=== PATIENT | female | born 1945 | race Caucasian/White ===

== ENCOUNTER 2016-08-17 05:10 | Inpatient (IN) | payer MEDICARE, BC ==
[2016-08-16 16:35] LABS: BASOPHILS 0.3 % (0.0-2.0); EOSINOPHILS 0.9 % (0-7); HEMATOCRIT 38.7 % (36.0-48.0); HEMOGLOBIN 12.9 g/dL (12-16); IMMATURE GRANULOCYTES 0.2 % (0-5); LYMPHOCYTES 28.8 % (15-50); MCH 31.6 pg (26.0-34.0); MCHC 33.3 g/dL (31.0-37.0); MCV 94.9 fL (80.0-100.0); MEAN PLATELET VOLUME 8.3 fL (7.4-10.4); MONOCYTES 8.7 % (2-11); NEUTROPHILS 61.1 % (40-80); PLATELET COUNT 318 10x3/uL (130-400); RBC 4.08 10x6/uL (4.00-5.40); WBC 10.2 10x3/uL (4.8-10.8)
[2016-08-16 16:53] LABS: APPEARANCE CLEAR (CLEAR); BILIRUBIN NEGATIVE (NEGATIVE); COLOR YELLOW (YELLOW); GLUCOSE NEGATIVE (NEGATIVE); KETONE NEGATIVE (NEGATIVE); LEUKOCYTE ESTERASE 1+ (NEGATIVE); NITRITE NEGATIVE (NEGATIVE); PROTEIN NEGATIVE (NEGATIVE); UROBILINOGEN NORMAL (NORMAL)
[2016-08-16 16:54] LABS: BACTERIA FEW /hpf (NONE SEEN); EPITHELIAL CELLS OCC /hpf (0-5); RED CELLS - URINE 0-5 /hpf (0-5); WHITE CELLS - URINE 0-5 /hpf (0-5)
[2016-08-16 17:26] LABS: ANION GAP 12.5 mmol/L (8-16); CALCIUM 8.9 mg/dL (8.5-10.1); CARBON DIOXIDE 28.3 mmol/L (21.0-32.0); POTASSIUM - SERUM 3.8 mmol/L (3.5-5.1)
[2016-08-17] VITALS (12 sets, daily range): BP systolic 106–132; BP diastolic 60–70; Ht 157.5 cm; Wt 59.1 kg
[~2016-08-17] VITALS: Ht 157.5 cm; Wt 59.1 kg
[~2016-08-17 05:10] MED LIST: CARTIA XT240 MG PO; CHILDREN'S ASPI81 MG PO; DEXILANT30 MG PO; HYZAAR 100-12.51 TAB PO; IBUPROFEN800 MG PO; LIPITOR20 MG PO; REQUIP0.25 MG PO
--- NOTE | 2016-08-17 09:46 | HP ---
PATIENT: MIKEY IRIZARRY MEDICAL RECORD: [id number] ACCOUNT: [id number] LOCATION:[facility] [place]- : 47 ADMISSION DATE: 08/17/16 HISTORY AND PHYSICAL EXAMINATION CHIEF COMPLAINT: Neck pain secondary to C5-C6 degenerative disc disease. HISTORY OF PRESENT ILLNESS: This is a pleasant small framed white female seen in our clinic on referral from Dr. Saleh secondary to neck pain. She has been symptomatic despite conservative treatment. She has had 1 cervical injection, which did not bring any lasting relief. She is an avid golfer. Her pain worsened after playing pickleball. It radiates into her left shoulder, worse than right. PAST MEDICAL HISTORY: Significant for a stent placed in 2007 with no subsequent symptoms and high blood pressure. SOCIAL HISTORY: She is , but recently engaged. PAST SURGICAL HISTORY: Stent placement, appendix, ____. FAMILY DOCTOR: Dr. Saleh. ALLERGIES: None. CURRENT MEDICATIONS: Ibuprofen, losartan/HCTZ, ____, atorvastatin, and Robinul. REVIEW OF SYSTEMS: She denies any recent chest pain, shortness of breath or weight changes. PHYSICAL EXAMINATION: GENERAL: This is an alert, oriented female. Height 5 feet and 2 inches. Weight 134. HEENT: Normocephalic. Pupils are equal and reactive to light. CHEST: Clear bilaterally to auscultation. HEART: S1 and S2. ABDOMEN: Soft, bowel sounds present. EXTREMITIES: She has bilateral equal footwear sales associate. She has pain with range of motion of her neck. IMPRESSION: C5-C6 degenerative disc disease, left greater than right. PLAN: C5-C6 ACDF with Alphatec. The risks and benefits of surgery have been explained to her in detail. Risks include bleeding, failure to relieve symptoms, problems with anesthesia and . Time was allowed for questions, questions were answered. The patient wishes to proceed with surgery. Her MRI was done at [facility] and she is bringing the disc with her. TRANSINT:[id number] Voice Confirmation ID: [id number] DOCUMENT ID: [id number] Dictated By: EMERY BELTRAN I have interviewed/examined the above patient and agree with these documented findings. HISTORY AND PHYSICAL [id number] MIKEY IRIZARRY KAPIL,CADY Conway MD at 0946 at 1339 CC: [id number] DICTATION DATE: 08/16/16 1518 GENERAL TECHNICIAN: 08/16/16 1549 ADM IN [facility] [address] [place] [address]
--- NOTE | 2016-08-17 10:03 | NUR ---
NO DIFFICULTY SWALLOWING TRACHEA MIDLINE NO TINGLING OR NUMBNESS EQUAL STRENGHTS IN ALL 4 EXTREMETIES
--- NOTE | 2016-08-17 11:00 | NUR ---
TO ROOM 2232 FROM PACU VIA BED.VSS.SOFT CERVICAL COLLAR IN PLACE AND CLEAN AND DRY.ELEONORA DRAIN INPLACE WITH MINIMAL DRAINAGE IN TUBE,RED IN COLOR.ORIENTATION TO ROOM WITH FAMILY.CALL LIGHT IN REACH.
--- NOTE | 2016-08-17 13:20 | NUR ---
Patient Name: MIKEY IRIZARRY Admission Status: Elective Accout number: [id number] Admission Date: 08-17-2016 : 1945 Admission Diagnosis: Attending: KIESHA Current LOS: 1 Anticipated DC Date: 08-19-2016 Planned Disposition: Home or Self Care Primary Insurance: MEDICARE A & B Discharge Planning Comments: CM MET WITH PATIENT AND SPOUSE (DYLON) REGARDING D/C NEEDS AND PLANS. PATIENTS SPOUSE WILL DRIVE HER HOME AT DISCHARGE. PATIENT IS INDEPENDENT WITH HER CARE AND HAS NO DME AT HOME. PATIENT HAS 2 STEPS W/O RAILS TO ENTER HOME AND NO STAIRS INSIDE. PATIENTS PCP IS DR. POST AND PHARMACY IS [facility]. PATIENT HAS NEVER HAD HOME HEALTH BEFORE. CM WILL CONTINUE TO FOLLOW PATIENT WITH D/C NEEDS AND PLANS. PCP DR. SEJAL SHERMAN AT [facility] [phone] DYLON (SPOUSE) [phone] Microelectronics Technician: Marie Dumont Is the patient Alert and Oriented? Yes 0 * How many steps to enter\exit or inside your home? 2 W/O RAIL 0 * PCP DR. POST 0 * Pharmacy [facility] 0 * Preadmission Environment Home with Family 0 * ADLs Independent 0 * Equipment None 0 * List name and contact numbers for known caregivers / representatives who currently or will assist patient after discharge: DYLON (SPOUSE) [phone] 0 * Community resources currently utilized None 0 * Additional services required to return to the preadmission environment? Yes 0 * Can the patient safely return to the preadmission environment? Yes 0 * Has this patient been hospitalized within the prior 30 days at any hospital? No 0 Grand Total: 0
--- NOTE | 2016-08-17 14:09 | NUR ---
MEDS ORDERED.DENIES PAIN.DSG REMAINS CDI.ELEONORA REMAINS UNCHANGED.CALL LIGHT IN REACH
--- NOTE | 2016-08-17 15:01 | NUR ---
STILL DENIES PAIN.VSS
--- NOTE | 2016-08-17 15:28 | NUR ---
CALL TO EMERY PADILLA.. DRAIN OUT.
--- NOTE | 2016-08-17 19:27 | NUR ---
REMAINS WITHOUT NEEDS,WITHOUT DISTRESS.CONT PLAN OF CARE
--- NOTE | 2016-08-17 22:07 | NUR ---
RESTING IN BED WATCHING TV. ALERT ORIENTED CONVERSANT. SOFT CERVICAL COLLAR ON. DENIES NEEDS. NO ACUTE DISTRESS NOTED
[2016-08-18] VITALS: BP 127/55
--- NOTE | 2016-08-18 00:10 | NUR ---
RESTING WITH EYES CLOSED, CERVICAL COLLAR IN PLACE, DSG CDI, NO DISTRESS NOTED, CL IN REACH
[2016-08-18 04:00] VITALS: BP 140/68
[2016-08-18] MEDS ORDERED: ROBAXIN500 MG PO (07:11)
[2016-08-18] MEDS ORDERED: HYDROCODON-ACE1 EAC7 PO (07:12)
[2016-08-18 08:04] VITALS: BP 135/63
--- NOTE | 2016-08-18 11:08 | NUR ---
DISCHARGE INSTRUCTIONS COMPLETED WITH PATIENT AND PATIENT'S . BOTH VERBALIZED UNDERSTANDING AND DENIES QUESTIONS. D/C IV WITH CATH INTACT.
--- NOTE | 2016-08-22 13:41 | OP ---
PATIENT NAME: CHELSEA WELCH MEDICAL RECORD: [id number] :47 LOCATION:[facility] ADMISSION DATE:08/17/16 SURGEON: CADY DICK MD DATE OF OPERATION: 08/17/2016 PREOPERATIVE DIAGNOSIS: Left C6 radiculopathy. POSTOPERATIVE DIAGNOSIS: Left C6 radiculopathy. PROCEDURE PERFORMED: 1. ____ C5-6 discectomy and bilateral foraminotomies. 2. Anterior interbody arthrodesis with inplate preparation. 3. Application of intervertebral biomechanical device at C5-6. 4. Anterior plate fixation with bilateral screws at C5 and C6 5. Use of intraoperative microscope with microdissection technique. IMPLANTS: 1. Alphatec Trestle Luxe plate 12 mm length. 2. A 14-mm variable angled screws at C5 bilaterally. 3. A 12-mm rescue screws at C6 bilaterally. 4. A 7-mm intervertebral Alphatec cage packed with DBX allograft. COMPLICATIONS: None Apparent. ESTIMATED BLOOD LOSS: 25 mL. NEURO MONITORING: No changes in SSEPs throughout. HISTORY OF PRESENT ILLNESS: Ms. Chelsea Welch is a pleasant 71-year-old female who presented as an outpatient with intractable left upper extremity pain consistent with a C6 distribution. MRI of the cervical spine was consistent with left C5-6 foraminal stenosis. I had an extensive discussion with her regarding continued conservative therapy versus operative intervention and decompression. She chose to undergo operative decompression fixation. We discussed the surgery in detail preoperatively including risks of damage to adjacent structures like the trachea, esophagus, temporarily swallowing dysfunction, vocal cord paralysis, malposition of hardware requiring further surgery, and lack of improvement and a preoperative pain. She understands the risks of surgery and agreed to go forward. DESCRIPTION OF THE PROCEDURE: Ms. Chelsea Welch was identified by the anesthesia team and transferred to the operative theater. She was gently transferred over the supine position on the operative table. General endotracheal anesthesia commenced and all appropriate lines and tubes were placed. Using lateral fluoroscopy, the incision was marked. The area was prepped and draped in usual sterile fashion. Local anesthetic was infiltrated in the dermal and subdermal space. Timeout was performed. Prior to the initiation of the procedure and agreed to by those present. The patient did received IV antibiotics and IV dexamethasone (10mg) prior to the start of the case. A #10 blade was used to make a skin incision down to the underlying subcutaneous fat. Bovie electrocautery was used to transect the platysma muscle. The Metzenbaum scissors were used to undermined the platysma rostrally and caudally. The plane between the carotid bundle laterally, and the trachea and esophagus medially was identified and developed and anterior cervical spine was identified. The prevertebral fascia was transected and the C5-6 disc space OPERATIVE REPORT [id number] EDIECHELSEA GILL was marked with a snap and confirmed to be the appropriate level on the lateral fluoroscopy. Low power Bovie electrocautery was used to joceline the disc space as well as to cleaned off the adjacent anterior aspect of the C5 and C6 vertebral body, as well as to undermined and dissect away the longus colli laterally. The Trimline retractor was then introduced and seated deep to the longus colli and gently retracted. A [place] pins were placed in the bodies of C5 and C6. Square cut in the C5-6 disc space was made with a 15 blade. At this point, the microscope was brought into the field and used throughout the decompression and the intervertebral cage placement. Again, using the microscope and gentle distraction with the [place] distractor pins, the C5-6 discectomy was carried out. The PLL was taken down and bilateral foraminotomies were performed. The decompression was complete when the nerve hook confirmed satisfactory decompression the bilateral foramina. Small amount of surgery FloSeal hemostatic matrix was used to control a small amount of epidural hemorrhage. This was irrigated free and no significant hemorrhage was appreciated. Ultimately, a 7-mm intervertebral trial was placed and found to be satisfactory on fluoroscopy. A 7 mm intervertebral cage was packed with DBX putty and inserted under lateral fluoroscopy to the appropriate depth. A 12-mm Alphatec plate was then laid into place and sequentially starting with a C5 vertebral body. The screws were predrilled and 14-mm variable angle screws were placed in the C5 vertebral bodies bilaterally. Using the hand held battery operated drill, the Profiler holes for the C6 screws were developed and a 14-mm fixed angled screws were then placed bilaterally. Initially, the screws were not set down to adequate depth to allow for the locking mechanism. Therefore, 12-mm rescue screws were exchanged and seated down. All components and the locking screws were confirmed to be in place with final locking visually obvious. Please note that when the [place] pins were removed prior to the plate fixation after the application of intervertebral cage. The [place] pin sites were addressed regarding hemostasis with a Surgiflo, hemostatic matrix. A copious amount of irrigation was used and Trimline retractors were carefully removed and no significant hemorrhage occurred. At this point, a 3D acquisition scan was performed with a 3/4 drapes covering the operative field. This confirmed a satisfactory hardware placement. The 3/4 drapes were taken down. The gloves were changed and final irrigation was performed. The platysma was reapproximated with interrupted 3-0 Vicryl sutures. Prior to this, a 10-Ivorian round drain was laid into place over the hardware in supraplatysmal fashion inferior and laterally away from the incision. Again, the platysma was closed with 3-0 Vicryl sutures in an interrupted fashion. The skin was closed with a running subcuticular 4-0 Monocryl. Dermabond dressing was placed. The drain was sutured into place and the patient was returned to the anesthesia team for reversal extubation. All sponge and needle counts were correct times 2 at the end of the case. No changes in SSEP monitoring was observed and the patient seemed to tolerate the procedure well. I updated the patient's fiancee immediately postoperatively in the waiting room and all of his questions were answered. TRANSINT:[id number] Voice Confirmation ID: [id number] DOCUMENT ID: [id number] OPERATIVE REPORT [id number] CHELSEA WELCH,CADY Conway MD at 1341 CC: [id number] DICTATION DATE: 08/17/16 1001 AED TRAINER: 08/17/16 1144 DIS IN 08/18/16 [facility] [address] [place] [address]
== END 2016-08-18 11:09 | disposition home or self-care (01) | DRG 473 ==
LOC: D.MS 05:10 → D.SDCHOLD 05:10 → D.MS 10:51 → D.SDCHOLD 12:00 → D.MS 08-18 11:09 → D.SDCHOLD 08-18 12:00
PROVIDERS: ADMIT Neurological Surgery
PROC: 0RG10A0 Fusion of Cervical Vertebral Joint with Interbody Fusion Device, Anterior Approach, Anterior Column, Open Approach (ICD-10-PCS; principal; 2016-08-17 07:30)
PROC: 0RB30ZZ Excision of Cervical Vertebral Disc, Open Approach (ICD-10-PCS; 2016-08-17 07:30)
DX: M50.122 Cervical disc disorder at C5-C6 level with radiculopathy (principal); I10 Essential (primary) hypertension

== ENCOUNTER → 2016-09-02 09:12 | Outpatient (CLI) | payer MEDICARE, BC ==
[2016-08-17 11:03] VITALS: BMI 23.8
[~2016-09-02 09:12] MED LIST changes: +HYDROCODON-ACE1 EAC7 PO; +ROBAXIN500 MG PO
== END | disposition home or self-care (01) ==
LOC: D.RAD 09:00
DX: M43.22 Fusion of spine, cervical region (principal)

== ENCOUNTER → 2017-03-21 09:02 | Outpatient (CLI) | payer MEDICARE, BC ==
[2016-08-17 11:03] VITALS: BMI 23.8
== END | disposition home or self-care (01) ==
LOC: D.RAD 09:00
DX: R07.89 Other chest pain (principal)

== ENCOUNTER → 2019-04-11 08:06 | Outpatient (CLI) | payer MEDICARE ==
[2016-08-17 11:03] VITALS: BMI 23.8
[~2019-04-11 08:06] MED LIST changes: +ALENDRONAT70 MG/75 M PO; +BAYER CHEWABLE81 MG PO; +EFFIENT10 MG PO
--- NOTE | 2019-04-17 02:11 | ST ---
PATIENT:MIKEY IRIZARRY MEDICAL RECORD: [id number] SEX: F LOCATION:[facility] ORDER #: ADMISSION DATE: 04/11/19 AGE OF PATIENT: 74 REFERRING PHYSICIAN: INTERPRETING PHYSICIAN: ZACHERY NICOLAS MD DATE OF SERVICE: 04/11/2019 PROCEDURE: Nuclear stress testing. INDICATION: Angina and coronary artery disease, shortness of breath, hypertension, hyperlipidemia. TECHNIQUE: She was exercised on standard Sabino protocol for 5 minutes, terminated due to shortness of breath, achieving 85% max target heart rate response with 33 mCi sestamibi injected at peak stress, 11 mCi used previously for rest images. FINDINGS: Gated SPECT reveals preserved ejection fraction at 80% with good wall motion and thickening and brightening throughout all segments. SPECT imaging Cardiolite was used as myocardial fusion agent. There is homogeneous uptake throughout all segments at rest and stress with no evidence of inducible ischemia or previous infarction. OVERALL IMPRESSION: 1. This is a normal nuclear stress test with no evidence of inducible ischemia or previous infarction. 2. Gated SPECT reveals a preserved ejection fraction at 80%. In this patient with ongoing symptomatology, the current scan does not suggest the presence of hemodynamically significant coronary artery disease. Evaluate noncardiac etiology of chest pain. TRANSINT:[id number] Voice Confirmation ID: [id number] DOCUMENT ID: [id number] ZACHERY NICOLAS MD at 0211 CC: MATEO POST MD [id number] DICTATION DATE: 04/12/19 1043 TURRET PRESS OPERATOR: 04/13/19 0014 DEP CLI 04/11/19 [place] [id number]
== END | disposition home or self-care (01) ==
LOC: D.HCCARDIO 08:06
PROVIDERS: ATTEND Internal Medicine Interventional Cardiology
DX: I25.119 Atherosclerotic heart disease of native coronary artery with unspecified angina pectoris (principal)

== ENCOUNTER 2019-05-21 08:10 | Outpatient (CLI) | payer MEDICARE ==
[~2019-05-21] VITALS: Ht 157.5 cm; Wt 59.1 kg
--- NOTE | ~2019-05-21 | HEMODYNAMI ---
PATIENT:MIKEY IRIZARRY MEDICAL RECORD: [id number] : 47 LOCATION:[facility] ADMISSION DATE: 05/21/19 Generatedon:05/21/201910:38 Patient name: MIKEY IRIZARRY Patient #: [id number] SSN: [id number] : 1945 Date of study: 05/21/2019 Page: Of Hemodynamic Procedure Report Patient Data Patient Demographics Procedure consent was obtained First Name: MIKEY Gender: Female Last Name: EDIE : 1945 Middle Initial: JAIRO Age: 74 year(s) Patient #: [id number] Race: SSN: [id number] Additional ID: [id number] Contact details [address]: [address] [place] [address] State: [place] City: [place] Zip code: [address] Past Medical History Performed procedures and imaging results Date Procedure Procedure Results Comments Stress testing with Negative SPECT MPI History of disease Date Diagnosis Comments CAD Allergies Allergen Reaction Date Comments Reported Other allergy 05/21/2019 clopidogrel bisulfate (from plavix) Admission Admission Data Admission Date: 05/21/2019 Admission Time: 8:10 Arrival Date: 05/21/2019 Arrival Time: 9:45 Admit Source: Other Insurance Payor: Medicare [facility] #: [id number] Height (in.): 61.81 BSA: 1.59 (m2) Height (cm.): 157 BMI: 23.94 (kg/m2) Weight (lbs.): 130.07 Weight (kg.): 59 Lab Results Lab Result Date: 05/21/2019 Lab Result Time: 0:00 Biochemistry Name Units Result Min Max BUN mg/dl 23 --(----)-* 7 18 Creatinine mg/dl 0.8 --(-*--)-- 0.6 1.3 eGFR ml/min 73.55830 *-(----)-- 90 120 NONAFRICAN CBC Name Units Result Min Max Hemoglobin g/dl 14.4 --(*---)-- 13.5 17.5 Procedure Procedure Types Cath Procedure Diagnostic Procedure [facility] w/Coronaries FFR/IVUS FFR Initial Sedation Charges Moderate Sedation up to 15 minutes PCI Procedure Coronary Stent Coronary Stent Initial Procedure Description Procedure Date Procedure Date: 05/21/2019 Procedure Start Time: 10:15 Procedure End Time: 10:36 Procedure Staff Name Function Xavier Wilkinson MD Performing Physician Rosalind Ramsey RT Monitor Jeanne Bean RT Monitor Jamal Wong RN Nurse Radha Hastings RT Scrub Indication Angina Procedure Data Cath Procedure Fluoroscopy Diagnostic fluoroscopy Total fluoroscopy Time: 2.9 time: 2.9 min min Diagnostic fluoroscopy Total fluoroscopy dose: 275 dose: 275 mGy mGy Contrast Material Contrast Material Type Amount (ml) Isovue 300 82 Entry Location Entry Primary Successful Side Size Upsize Upsize Entry Closure Marroquin ccessful Closure Location (Fr) 1 (Fr) 2 (Fr) Remarks Device Remarks Radial Right 6 Fr Mechanical artery Short Compression Estimated blood loss: 10 ml Diagnostic catheters Device Type Used For End Catheter Placement DIAGNOSTIC Lawn 110cm 5 Procedure Fr catheter ([id number]) Procedure Complications No complications Procedure Medications Medication Administration Route Dosage 0.9% NaCl I.V. 100 ml/hr Oxygen etCO2 Nasal cannula 2 l/min Heparin Flush Bag added to field 1 bags (1000units/500ml NS) Lidocaine 2% added to field 20 Radial Cocktail added to field 1 syringe (Verapamil 2mg/Nitro 400mcg/Heparin 1500units) Benadryl I.V. 50 mg Versed I.V. 2 mg Fentanyl I.V. 100 mcg Radial Cocktail I.A. 1 syringe (Verapamil 2mg/Nitro 400mcg/Heparin 1500units) Versed I.V. 1 mg Heparin Bolus I.V. 4000 units Integrilin (Bolus I.V. 5 ml 2mg/ml) Integrilin (Bolus wasted 5 ml 2mg/ml) Effient P.O. 60 mg Hemodynamics Rest BSA: 1.59 (m2) HGB: 14.4 (g/dl) O2 Consumption: Estimated: 153.14 (ml/min) O2 Co nsumption indexed: Estimated:96.31 (ml/min/m) Heart Rate: 83 (bpm) Snapshots Pre Cath Intra NCS Post Cath Vital Signs Time Heart Resp SPO2 etCO2 NIBP (mmHg) Rhythm Pain Sedation Rate (ipm) (%) (mmHg) Status Level (bpm) 9:49:25 80 24 96 0 146/69(118) NSR 0 (11) 10(A) , No pain 9:53:43 60 10 99 28.6 153/72(119) NSR 0 (11) 10(A) , No pain 9:58:05 62 11 100 30.9 150/70(116) NSR 0 (11) 10(A) , No pain 10:02:23 60 11 100 30.1 126/61(105) NSR 0 (11) 10(A) , No pain 10:07:37 58 11 100 30.9 128/64(100) NSR 0 (11) 10(A) , No pain 10:11:51 59 12 100 30.8 134/66(110) NSR 0 (11) 10(A) , No pain 10:16:48 56 18 99 30.9 111/58(87) NSR 0 (11) 10(A) , No pain 10:20:58 69 18 95 28.6 111/61(88) NSR 0 (11) 9(A) , No pain 10:25:08 63 19 97 27.9 112/60(92) NSR 0 (11) 9(A) , No pain 10:29:17 70 11 98 33.1 117/60(100) NSR 0 (11) 10(A) , No pain 10:33:30 62 10 100 30.1 123/60(105) NSR 0 (11) 10(A) , No pain Medications Time Medication Route Dose Verified Delivered Reason Not es Effectiveness by by 9:53:30 0.9% NaCl I.V. 100 Jamal Jamal Per physician ml/hr Marvin Wong RN RN 9:53:41 Oxygen etCO2 2 l/min Jamal Jamal for low 02 sats Nasal Deenaigan Marvin cannula RN RN 9:53:54 Heparin Flush added 1 bags Jamal Jamal used for Bag to Marvin Wong procedure (1000units/500ml field LUÍS RN NS) 9:54:06 Lidocaine 2% added 20ml Jamal Jamal for local to vial Lorigan Deenaigan anesthetic field STALEY RN 9:54:17 Radial Cocktail added 1 Jamal Jamal used for (Verapamil to syringe Lorigan Lorigan procedure 2mg/Nitro field RN RN 400mcg/Heparin 1500units) 9:54:30 Benadryl I.V. 50 mg Jamal Jamal Per physician Marvin Wong RN RN 10:12:26 Versed I.V. 2 mg Jamal Jamal for sedation Marvin Wong RN RN 10:12:37 Fentanyl I.V. 100 mcg Jamal Jamal for sedation Marvin Wong RN RN 10:17:29 Radial Cocktail I.A. 1 Jamal Xavier for (Verapamil syringe Marvin Wlikinson MD vasodilation 2mg/Nitro RN 400mcg/Heparin 1500units) 10:17:42 Versed I.V. 1 mg Jamal Jamal for sedation Marvin Wong RN RN 10:26:29 Heparin Bolus I.V. 4000 Jamal Jamal for units Marvin Wong anticoagulation RN RN 10:26:44 Integrilin I.V. 5 ml Jamal Jamal for (Bolus 2mg/ml) Marvin Wong antiplatelet RN RN therapy 10:26:51 Integrilin wasted 5 ml Jamal Jamal to sharp's (Bolus 2mg/ml) Marvin Wong RN RN 10:31:45 Effient P.O. 60 mg Jamal Jamal for Marvin Wong antiplatelet RN RN therapy Procedure Log Time Note 9:38:54 Informed consent obtained and on chart 9:43:09 ACC Patient presents with Stable Angina CCS Anginal Class 1--Ordinary physical activity does not cause angina, angina occurs with strenuos, rapid, or prolonged activity.. 9:43:17 Procedure Status Elective Heart Cath (OP). 9:43:25 Jamal Wong RN sent for patient. Start room use. 9:43:28 Time tracking: Regular hours (M-F 7:00 - 5:00) 9:43:37 Plan of Care:Hemodynamics will remain stable., Cardiac rhythm will remain stable., Comfort level will be maintained., Respiratory function will remain adequate., Patient/ family verbilizes understanding of procedure., Procedure tolerated without complication., Recovers from procedure without complications.. 9:44:36 Patient received from Pre/Post Procedure Room to [facility] 1 Alert and oriented. Tansferred to table in Supine position. 9:48:12 Warm blankets applied, and deonna hugger turned on for patient comfort. 9:48:13 Correct patient and procedure confirmed by team. 9:48:14 ECG and BP/O2 sat monitors applied to patient. 9:48:17 Vital chart was started 9:48:41 Baseline sample Acquired. 9:49:05 H&P Date Dictated: 05/21/2019 H&P Addendum completed by physician on day of procedure. (MUST COMPLETE FOR ALL OUTPATIENTS), New H&P dictated by physician.. 9:49:11 Pre-procedure instructions explained to patient. 9:49:12 Pre-op teaching completed and patient verbalized understanding. 9:49:19 Family in patients room. 9:49:23 Patient NPO since Midnight. 9:50:07 Patient allergic to Other allergyclopidogrel bisulfate (from plavix) 9:50:16 Is the patient allergic to Iodine/contrast media? No. 9:51:40 Is patient on blood thinner?No 9:52:09 Patient diabetic? No. 9:52:14 ----Pre-sedation anethsthesia assessment.---- 9:52:19 Previous problem with sedation/anesthesia? No ? 9:52:21 Snore? No 9:52:23 Sleep apnea? No 9:52:25 Deviated septum? No 9:52:27 Opens mouth fully? Yes 9:52:28 Sticks out tongue? Yes 9:52:34 Airway obstruction? No ? 9:52:43 Dentures? Yes implant 9:53:30 0.9% NaCl 100 ml/hr I.V. was administered by Jamal Wong RN; Per physician; Verbal order read back and verified. 9:53:35 Lab Result : Hemoglobin 14.4 g/dl 9:53:35 Lab Result : eGFR NONAFRICAN 73.39188 ml/min 9:53:35 Lab Result : BUN 23 mg/dl 9:53:35 Lab Result : Creatinine 0.8 mg/dl 9:53:41 Oxygen 2 l/min etCO2 Nasal cannula was administered by Jamal Wong RN; for low 02 sats; Verbal order read back and verified. 9:53:42 Pre procedure: right dorsailis pedis pulse 1+ Palpable, but thready & weak; easily obliterated 9:53:47 Modified Pako's test Radial < 7 seconds 9:53:52 Patient pain scale 0/10 ?. 9:53:54 Heparin Flush Bag (1000units/500ml NS) 1 bags added to field was administered by Jamal Wong RN; used for procedure; Verbal order read back and verified. 9:54:06 Lidocaine 2% 20ml vial added to field was administered by Jamal Wong RN; for local anesthetic; Verbal order read back and verified. 9:54:15 IV patent on arrival in right forearm with 0.9% NaCl at KVO. 9:54:17 Radial Cocktail (Verapamil 2mg/Nitro 400mcg/Heparin 1500units) 1 syring e added to field was administered by Jamal Wong RN; used for procedure; Verbal order read back and verified. 9:54:24 Lab results completed and on chart. 9:54:30 Benadryl 50 mg I.V. was administered by Jamal Wong RN; Per physician; Verbal order read back and verified. 9:54:38 Right groin area was prepped with chlora-prep and draped in sterile fashion 9:54:43 Right Radial & Right Groin area was prepped with chlora-prep and draped in sterile fashion 9:54:45 Alarms reviewed by R. N. 9:54:46 Sharps counted by scrub and verified by R.N. 9:54:47 - 9:56:10 Use device set Radial Dx or PCI 9:56:12 ACIST Syringe (20990) opened to sterile field. 9:56:13 Medline Cath Pack ([id number]) opened to sterile field. 9:56:14 Bag Decanter () opened to sterile field. 9:56:15 ACIST Hand Control (80530) opened to sterile field. 9:56:16 ACIST Manifold (74805) opened to sterile field. 9:56:18 Tegaderm 4 x 4 (1626W) opened to sterile field. 9:56:19 MBrace Wrist Support ([id number]) opened to sterile field. 9:56:21 EMERALD Guide Wire (686-585) opened to sterile field. 9:56:22 SHEATH 6FR RAIN (1705570) opened to sterile field. 9:57:13 Baseline sample Acquired. 9:57:19 Rhythm: sinus rhythm 9:58:25 ACCPatient has been prescribed/administered the following anti-anginal medication within the last 2 weeks: ARB 10:01:37 Arrival Date: 05/21/2019 9:45:00 AM 10:01:42 Patient Weight : 130.07 lbs 10:01:47 Patient Height : 61.81 inches 10:02:04 Insurance Payor : Medicare 10:02:16 Admit Source: Other 10:04:58 Indication : Angina 10:06:57 Physician paged 10:07:29 Zero performed for pressure channel P1 10:08:09 Physician arrived 10:08:16 --------ALL STOP TIME OUT------ 10:08:17 Final Timeout: patient, procedure, and site verified with staff and physician. All members of the team are in agreement. 10:08:21 Right Radial & Right Groin site verified by team. 10:08:28 Fire Safety Assessment: A--An alcohol-based skin anteseptic being used preoperatively., C--Open oxygen or nitrous oxide is being used., D--An ESU, laser, or fiber-optic light is being used. 10:08:34 Physical assessment completed. ASA score P 2 - A patient with mild systemic disease as per Xavier Wilkinson MD. 10:08:43 2) 60-89 Mildly reduced kidney function, and other findings (as for stage 1) point to kidney disease. 10:08:48 Maximum allowable contrast dose (3.7 X eGFR X 0.75)205 ml. 10:08:56 Sedation plan: IV Moderate Sedation Medication:Versed, Fentanyl 10:12:26 Versed 2 mg I.V. was administered by Jamal Wong RN; for sedation; Verbal order read back and verified. 10:12:37 Fentanyl 100 mcg I.V. was administered by Jamal Wong RN; for sedation; Verbal order read back and verified. 10:15:35 Procedure started. 10:15:35 Full Disclosure recording started 10:15:42 Local anesthetic to right radial artery with Lidocaine 2% by Xavier Wilkinson MD.INITIAL ACCESS ONLY 10:16:51 A 6 Fr Short sheath was inserted into the Right Radial artery 10:17:07 A DIAGNOSTIC Lawn 110cm 5 Fr catheter (528684) was advanced over the wire and used for Procedure. 10:17:29 Radial Cocktail (Verapamil 2mg/Nitro 400mcg/Heparin 1500units) 1 syring e I.A. was administered by Xavier Wilkinson MD; for vasodilation; Verbal order read back and verified. 10:17:42 Versed 1 mg I.V. was administered by Jamal Wong RN; for sedation; Verbal order read back and verified. 10:17:44 LV gram done using ARIAS 10:17:51 Injector settings: Ml/sec: 5, Volume: 15, 10:18:15 EF : 55 % 10:18:22 LCA angiography performed. 10:18:28 Injector settings: Ml/sec: 3, Volume: 5, 10:19:21 RCA angiography performed. 10:19:58 INFLATOR Merit BasixCompak (UC0357) opened to sterile field. 10:19:58 CHOICE PT Extra Support 182cm wire ([id number]) opened to sterile field. 10:20:00 [place] Verrata Plus pressure wire (77046Q) opened to sterile field. 10:20:16 GUIDE 6FR XBLAD 3.5 catheter ([id number]) opened to sterile field. 10:20:26 Catheter exchanged over wire. 10:20:56 6 Fr xblad3.5 guide catheter was inserted over the wire 10:22:04 FFR/IFR wire advanced. 10:22:54 Wire advanced across lesion. 10:23:30 mLAD lesion measured at .89 with IFR 10:23:54 ifr wire redirected to the circ. 10:23:57 Wire advanced across lesion. 10:24:18 LMCA lesion measured at ? with IFR 10:24:25 mCirc lesion measured at .98 with IFR 10:24:51 IFR WIRE REDIRECTED TO LAD. 10:25:15 Pre PCI Site: [place] mLAD has 70% stenosis. 10:26:29 Heparin Bolus 4000 units I.V. was administered by Jamal Wong RN; for anticoagulation; Verbal order read back and verified. 10:26:44 Integrilin (Bolus 2mg/ml) 5 ml I.V. was administered by Jamal Wong RN; for antiplatelet therapy; Verbal order read back and verified. 10:26:51 Integrilin (Bolus 2mg/ml) 5 ml wasted was administered by Jamal Wong RN; to sharp's; Verbal order read back and verified. 10:27:12 Place stent Inflation Number: 1 A COBRA RX 3.0 X 12 Stent was prepped and advanced across the Mid LAD . The stent was deployed at 13 TOREY for 0:04 (min:sec) . 10:27:30 Inflation number: 2 The stent balloon was then re-inflated across the Mid LAD to 15 TOREY for 0:10 (min:sec) . 10::48 Stent catheter was removed intact over wire. 10:27:56 Guide catheter removed. 10:28:04 Wire removed. 10:28:11 Procedure ended.(Physican Out) 10:28:30 ZEPHYR REGULAR TR BAND (741932) opened to sterile field. 10:28:53 Sheath removed intact; hemostasis achieved with Mechanical Compression to the Right Radial artery. 10:29:08 Post PCI Site: [place] mLAD has 0% stenosis. 10:30:15 Fluoroscopy time 02.90 minutes. 10:30:30 Fluoroscopy dose: 275 mGy 10:30:30 Flurop Dose total: 275 10:30:39 Dose Area Product 20531 mGy/cm. 10:30:46 Contrast amount:Isovue 300 82ml. 10:30:49 Maximum allowable dose exceeded? No. 10:30:51 Sharps counted by scrub and verified by R.N. 10:30:56 [place] band inflated with 11cc of air. 10:30:58 Insertion/operative site no bleeding no hematoma. 10:31:45 Effient 60 mg P.O. was administered by Jamal Wong RN; for antiplatelet therapy; Verbal order read back and verified. 10:31:47 Post-procedure physical assessment completed. ASA score P 2 - A patient with mild systemic disease as per Xavier Wilkinson MD. 10:31:52 Post procedure rhythm: unchanged. 10:31:56 Estimated blood loss: 10 ml 10:32:01 Post procedure instruction explained to patient.Patient verbalizes understanding. 10:32:01 Patient needs reinforcement of post procedure teaching. 10:34:13 Procedure type changed to Cath procedure, Diagnostic procedure, LHC, LH C w/Coronaries, FFR/IVUS, FFR Initial, Sedation Charges, Moderate Sedation up to 15 minutes, PCI procedure, Coronary Stent, Coronary Stent Initial 10:36:05 Procedure and supply charges have been captured, reviewed, submitted an d are correct. 10:36:13 Procedure Complication : No complications 10:36:17 Vital chart was stopped 10:36:18 See physician's report for complete and final results. 10:36:21 Report given to Pre/Post Procedure Room. 10:36:27 Patient transfered to Pre/Post Procedure Room with Stretcher. 10:36:31 Procedure ended. 10:36:31 Full Disclosure recording stopped 10:36:57 ACC-PCI Only Patient was given prescriptions, or instructed by Xavier Wilkinson MD to start/continue the following medications upon discharge: Effient 10:37:00 End room use (Document Last) Intervention Summary Intervention Notes Time ActionType Lesion and Equipment Action# Pressure Duration Attributes Used 10:27:12 Place stent Mid LAD COBRA RX 1 13 00:04 3.0 X 12 Stent 10:27:30 Reinflate Mid LAD COBRA RX 2 15 00:10 stent 3.0 X 12 balloon Stent Device Usage Item Name Manufacture Quantity Catalog Number Hospital Part Current Minimal Lot# / Charge Number Stock Stock Serial# Code ACIST Syringe Acist 1 81303 182181 [id number] [id number] 20 (97749) Medical Systems Inc Medline Cath Medline 1 [id number] 998268 15608 556644 5 Pack ([id number]) Bag Decanter Microtek 1 396219 24308 452716 5 (2001S) Medical Inc. ACIST Hand Acist 1 58621 418492 998069 938445 5 Control Medical (78989) Systems Inc ACIST Manifold Acist 1 70141 366715 806524 397182 5 (48482) Medical Systems Inc Tegaderm 4 x 4 3M 1 1626W 849435 403635 737149 5 (1626W) MBrace Wrist Advanced 1 140-0250-00 345521 03890 503381 5 Support Vascular ([id number]) Dynamics EMERALD Guide Cardinal 1 258-920 095769 199319 233560 5 Wire (632-172) Health SHEATH 6FR Cardinal 1 4729432 158805 8040459 188356 5 RAIN (8075562) Health DIAGNOSTIC Terumo 1 40-9062 672143 536979 764184 5 Lawn 110cm 5 Fr catheter (524097) INFLATOR Merit Merit 1 WP8494 333697 054543 252988 15 [facility] Medical (XP4743) CHOICE PT [place] 1 [id number] 506019 102099 788953 5 Extra Support Scientific 182cm wire ([id number]) [place] 1 27455T 675751 [id number] 936982 5 Verrata Plus pressure wire (12198U) GUIDE 6FR Cardinal 1 [id number] 338179 879563 204866 10 XBLAD 3.5 Health catheter (38072756) COBRA RX 3.0 X Celonova 1 066-62-41751 547115 721969073 [id number] 0 [id number] 12 stent Biosciences (795-87-20356) ZEPHYR REGULAR Cardinal 1 219061 098014 8767687 354492 5 TR BlackLight Power (003144) Signature Audit Ceiba Stage Time Signature Unsigned Intra-Procedure 05/21/2019 Jeanne 10:37:49 AM Vikas RT(R) (CV) Intra-Procedure 05/21/2019 Jamal 10:38:24 AM Marvin STALEY Intra-Procedure 05/21/2019 Xavier Wilkinson 10:38:56 AM [address] [place] [address]
[~2019-05-21 08:10] MED LIST changes: -ALENDRONAT70 MG/75 M PO; -BAYER CHEWABLE81 MG PO; -EFFIENT10 MG PO
[2019-05-21] MEDS ORDERED: ALENDRONAT70 MG/75 M PO (08:21)
[2019-05-21] MEDS ORDERED: BAYER CHEWABLE81 MG PO (08:21)
[2019-05-21 08:35] VITALS: BP 165/59; Ht 157.5 cm; Wt 59.1 kg
[2019-05-21 08:46] LABS: BASOPHILS 0.4 % (0-2); EOSINOPHILS 1.8 % (0-7); HEMATOCRIT 42.7 % (36.0-48.0); HEMOGLOBIN 14.4 g/dL (12-16); IMMATURE GRANULOCYTES 0.4 % (0-5); LYMPHOCYTES 23.7 % (15-50); MCH 31.6 pg (26.0-34.0); MCHC 33.7 g/dL (31.0-37.0); MCV 93.8 fL (80.0-100.0); MEAN PLATELET VOLUME 8.5 fL (7.4-10.4); NEUTROPHILS 62.7 % (40-80); PLATELET COUNT 321 10x3/uL (130-400); RBC 4.55 10x6/uL (4.00-5.40); RDW 12.5 % (11.5-14.5); WBC 7.6 10x3/uL (4.8-10.8)
[2019-05-21 09:03] LABS: ANION GAP 9.4 mmol/L (8-16); CARBON DIOXIDE 28.9 mmol/L (21.0-32.0); CHOL - HDL RATIO 3.4 ratio (2.3-4.1); CREATININE - SERUM 0.8 mg/dL (0.6-1.3); POTASSIUM - SERUM 3.3 mmol/L (3.5-5.1)
--- NOTE | 2019-05-21 10:45 | NUR ---
PATIENT ARRIVED TO ROOM 8 VIA STRETCHER. PLACED ON CM. VSS. RIGHT Z BAND IN PLACE, NO S/S OF BLEEDING OR HEMATOMA.
[2019-05-21] MEDS ORDERED: EFFIENT10 MG PO (10:52)
--- NOTE | 2019-05-21 11:00 | NUR ---
PATIENT INTERMITTENTLY RESTING, VSS ON 1L NC. RIGHT Z BAND IN PLACE, NO S/S OF BLEEDING OR HEMATOMA. NO C/O PAIN, NUMBNESS, OR TINGLING. TOLERATING PO FLUIDS, NO N/V.
--- NOTE | 2019-05-21 11:30 | NUR ---
VSS ON ROOM AIR. RIGHT Z BAND IN PLACE, NO S/S OF BLEEDING OR HEMATOMA. NO C/O PAIN. TOLERATING PO FLUIDS AND FOOD. SIGNIFICANT OTHER AT BEDSIDE.
--- NOTE | 2019-05-21 12:00 | NUR ---
PATIENT C/O SLIGHT NUMBNESS IN RIGHT HAND, SKIN COLOR IS LIGHT DUSKY, CAP REFILL <3 SECONDS. SPOKE WITH ROB STALEY, 1CC OF AIR REMOVED FROM Z BAND. NO S/S OF BLEEDING OR HEMATOMA. VSS ON ROOM AIR. NO C/O PAIN. NO N/V.
--- NOTE | 2019-05-21 12:30 | NUR ---
PATIENT RESTING, VSS ON ROOM AIR. RIGHT HAND IS PINK AND WARM, PATIENT DENIES ANY NUMBNESS OR TINGLING. Z BAND IN PLACE,NO S/S OF BLEEDING OR HEMATOMA. NO N/V.
--- NOTE | 2019-05-21 13:00 | NUR ---
PATIENT INTERMITTENTLY RESTING. VSS ON ROOM AIR. NO C/O PAIN, NUMBNESS, OR TINGLING. PHYSICAN PREVIOUSLY AT BEDSIDE TO UPDATE PATIENT. Z BAND IN PLACE, NO S/S OF BLEEDING OR HEMATOMA.
--- NOTE | 2019-05-21 13:30 | NUR ---
4CC OF AIR REMOVED FROM Z BAND PER PROTOCOL, NO S/S OF BLEEDING OR HEMATOMA. NO C/O PAIN, NUMBNESS, OR TINGLING. VSS ON ROOM AIR. NO N/V.
--- NOTE | 2019-05-21 14:00 | NUR ---
REMAINING AIR REMOVED FROM Z BAND, NO S/S OF BLEEDING OR HEMATOMA. DRESSING APPLIED. NO C/O PAIN, NUMBNESS, OR TINGLING. VSS ON ROOM AIR. NO N/V.
--- NOTE | 2019-05-21 14:15 | NUR ---
PATIENT VOIDED WITHOUT DIFFICULTY. IV REMOVED. WRITTEN AND VERBAL DISCHARGE INSTRUCTIONS GIVEN TO PATIENT AND SIGNIFICANT OTHER, BOTH VOICE UNDERSTANDING. PRESCRIPTION CALLED IN TO [facility] [place] PER PATIENT REQUEST.
--- NOTE | 2019-05-21 14:25 | NUR ---
PATIENT TRANSPORTED VIA WHEELCHAIR TO CAR WITH SPOUSE DRIVING, ALL BELONGINGS WITH PATIENT.
--- NOTE | 2019-05-23 13:30 | OP ---
PATIENT NAME: MIKEY IRIZARRY MEDICAL RECORD: [id number] :47 LOCATION:D.CAT ADMISSION DATE: SURGEON: ZACHERY NICOLAS MD DATE OF OPERATION: 05/21/2019 PROCEDURES: 1. PTCA stent LAD. 2. IFR LAD. 3. IFR left circumflex. 4. Left heart catheterization. 5. Selective coronary angiography. 6. Left ventriculogram. INDICATION: Unstable angina and coronary artery disease. PROCEDURE IN DETAIL: After informed consent was obtained and after a detailed description of risks, benefits as well as alternative therapies, the patient elected to proceed with angiogram and angioplasty. The right radial area was prepped and draped in normal sterile fashion. Right radial artery was cannulated via modified Seldinger technique with placement of 6-Swazi sheath. All catheters exchanged through this sheath. FINDINGS: The left ventriculogram was performed in standard 30-degree ARIAS view, reveals good cardiac wall motion, ejection fraction 55% to 60%. SELECTIVE CORONARY ANGIOGRAPHY: 1. Left main has no significant angiographic disease. 2. Left anterior descending has a previously placed stent that is widely patent, has approximately 70% stenosis after this, an IFR was abnormal at 0.89. 3. The left circumflex has a questionable hazy area of stenosis in the mid vessel; however, IFR was normal at 0.98. 4. Right coronary artery has mild irregularities, but no flow-limiting stenosis. PTCA STENT OF THE LAD: The stent used was a 3.0 x 12 mm Cobra. Result was 0% residual stenosis. OVERALL IMPRESSION: Successful percutaneous transluminal coronary angioplasty stent of the left anterior descending going from 70% initial stenosis with an abnormal IFR to 0% residual stenosis. TRANSINT:[id number] Voice Confirmation ID: [id number] DOCUMENT ID: [id number] ZACHERY NICOLAS MD at 1330 CC: [id number] DICTATION DATE: 05/21/19 1034 OBSTETRICS AND GYNECOLOGY PROFESSOR: 05/21/19 1058 DEP CLI 05/21/[address] [address]
--- NOTE | 2019-05-23 13:31 | OP ---
PATIENT NAME: MIKEY IRIZARRY MEDICAL RECORD: [id number] :47 LOCATION:D.CAT ADMISSION DATE: SURGEON: ZACHERY NICOLAS MD DATE OF OPERATION: 05/21/2019 ADDENDUM She will follow up with [facility] clinic for further treatment and statin therapy. TRANSINT:[id number] Voice Confirmation ID: [id number] DOCUMENT ID: [id number] ZACHERY NICOLAS MD at 1331 CC: [id number] DICTATION DATE: 05/22/19 1149 INSURANCE CLAIMS CLERK: 05/22/19 1236 DEP CLI 05/21/19 [address] [place] [address]
== END 2019-05-21 14:25 ==
LOC: D.CATH 08:10
PROVIDERS: ATTEND Internal Medicine Interventional Cardiology
DX: I25.110 Atherosclerotic heart disease of native coronary artery with unstable angina pectoris (principal)

== ENCOUNTER → 2019-10-14 18:14 | Outpatient (CLI) | payer MEDICARE ==
[2019-05-21 08:35] VITALS: BMI 23.8
[~2019-10-14 18:14] MED LIST changes: +ALENDRONAT70 MG/75 M PO; +BAYER CHEWABLE81 MG PO; +EFFIENT10 MG PO
[2019-10-14 18:51] LABS: CHOL - HDL RATIO 2.3 ratio (2.3-4.1); LDL-HDL RATIO 1.2 ratio (1.5-3.5)
== END | disposition home or self-care (01) ==
LOC: D.LABREF 18:14
PROVIDERS: ATTEND Internal Medicine Interventional Cardiology
DX: E78.5 Hyperlipidemia, unspecified (principal)